=== PATIENT | female | born 1945 | race Hispanic/Latino ===

== ENCOUNTER 2025-10-02 10:39 | Emergency (ER) | payer OTHER ==
[~2025-10-02] VITALS: Ht 160 cm; Wt 72.6 kg
--- NOTE | 2025-10-02 10:59 | ERN ---
ED Note History of Present Illness Stated Complaint: CHEST PRESSURE. DIZZINESS R/T PNEUMONIA Chief Complaint: Chest Wall Pain Time Seen by MD: 10:41 Time Seen by Midlevel: 10:44 Dictation: 80-year-old female with a history of diabetes hypertension coming in for multiple complaints. Patient states she has been having intermittent chest pains for two weeks. Patient was seen on 09/29/2025 at [facility] where she was diagnosed with a atypical pneumonia and placed on azithromycin. Patient states she does not have any fever, mild cough. The patient also stating she is feeling generalized body weakness and in intermittently sees blood in her urine. Allergies: Coded Allergies: Iodinated Contrast Media (Unverified Allergy, Unknown, 10/02/25) Penicillins (Unverified Allergy, Unknown, 10/02/25) Sulfa (Sulfonamide Antibiotics) (Unverified Allergy, Unknown, 10/02/25) ciprofloxacin (Unverified Allergy, Unknown, 10/02/25) hyoscyamine (Unverified Allergy, Unknown, 10/02/25) Past Medical History Past Medical History: Angina, Diabetes-Type II, High Cholesterol, Heart Disease, Hypertension Additional Past Medical Hx: THYROID, VERTIGO Surgical History: Hysterectomy, Tonsillectomy, Cholecystectomy Surgical History Other: THYROIDECTOMY, BACK Review of System Dictation Constitutional: Negative for fever,chills, and weight loss, complaining of generalized weakness Eyes: Negative for injury, pain,redness, and discharge ENT: Negative for injury,pain or swelling Cardiovascular: Positive for chest pain, no palpitations, and no edema Respiratory: Negative for shortness of breath, positive cough, no wheezing Abdomen/GI: Negative for abdominal pain, nausea, vomiting, diarrhea, and constipation Back: Negative for injury and pain : Negative for injury, bleeding and discharge complaining of intermittent hematuria MS/Extremity: Negative for injury and deformity Skin: Negative for rash, and discoloration Neuro: Negative for headache, weakness, numbness, tingling, and seizure Psych: Negative for suicide ideation, homicidal ideation, and hallucinations Review of Systems: was completed Initial Vital Sign VS Vital Signs Date Time Temp Pulse Resp B/P (MAP) Pulse Ox O2 Delivery O2 Flow Rate FiO2 10/02/25 10:42 97.9 67 16 177/81 99 Room Air 0 10/02/25 10:51 21 Physical Exam Dictation General: awake, alert, NAD Head/Face: Normocephalic, atraumatic Eyes: PERRL, EOMI, vision at baseline ENT: oral cavity clear, TMs clear, no signs of infection Neck: Trachea midline, supple, no nuchal rigidity Cardiovascular: RRR, normal S1/S2, No MRGs, no JVD Respiratory: CTAB, no respiratory distress, No rales or wheezes Abdomen: Soft, non-tender, non-distended, normal bowel sounds, no guarding or rebound. Skin: Warm, dry, normal turgor, no rash MS/Extremity: Pulses equal, no cyanosis, neurovascular intact, FROM Neuro: COAx4, GCS 15, strength 5/5, CN 2-12 intact, normal cerebellar exam, normal gait, Psych: Normal behavior, mood, and affect normal Results (Laboratory/Radiology) Laboratory/Radiology Laboratory Tests Test 10/02/25 10:54 10/02/25 10:56 10/02/25 11:43 White Blood Count 6.0 K/uL (4.8-10.8) Red Blood Count 3.74 MIL/uL (4.00-5.50) L Hemoglobin 11.1 g/dL (12.0-16.0) L Hematocrit 34.7 % (36-48) L Mean Corpuscular Volume 92.8 fL (79-99) Mean Corpuscular Hemoglobin 29.7 pg (27.0-33.0) Mean Corpuscular Hemoglobin Concent 32.0 g/dL (32.0-36.0) Red Cell Distribution Width 13.8 % (11.0-15.5) Platelet Count 147 K/uL (130-400) Mean Platelet Volume 13.4 fL (7.5-10.5) H Immature Granulocyte % (Auto) 0.5 % (0-1) Neutrophils (%) (Auto) 61.2 % (40.0-77.0) Lymphocytes (%) (Auto) 27.1 % (21.0-51.0) Monocytes (%) (Auto) 8.0 % (3.0-13.0) Eosinophils (%) (Auto) 2.5 % (0.0-8.0) Basophils (%) (Auto) 0.7 % (0.0-5.0) Neutrophils # (Auto) 3.7 K/uL (1.8-7.7) Lymphocytes # (Auto) 1.6 K/uL (1.0-4.8) Monocytes # (Auto) 0.5 K/uL (0.1-1.0) Eosinophils # (Auto) 0.15 K/uL (0.00-0.70) Basophils # (Auto) 0.04 K/uL (0.00-0.20) Absolute Immature Granulocyte (auto 0.03 K/uL (0-1) Nucleated Red Blood Cells 0.0 % (0.0-0.19) Sodium Level 144 mmol/L (136-145) Potassium Level 4.6 mmol/L (3.5-5.1) Chloride Level 110 mmol/L (101-111) Carbon Dioxide Level 27 mmol/L (21-32) Blood Urea Nitrogen 19 mg/dL (7-18) H Creatinine 0.9 mg/dL (0.5-1.0) Glomerular Filtration Rate Calc 65 mL/min (>90) Random Glucose 142 mg/dL (70-105) H Total Calcium 8.4 mg/dL (8.5-10.1) L Troponin I High Sensitivity 5 ng/L (4-50) Influenza Type A Antigen Positive For Type A Influenza Type B Antigen Negative For Type B SARS-CoV-2, RNA, NAAT NEGATIVE SARS CoV-2 Urine Color COLORLESS (YELLOW) Urine Appearance CLEAR (CLEAR) Urine pH 6.0 (5.0-8.0) Urine Specific Simon 1.007 (1.001-1.031) Urine Protein NEGATIVE mg/dL (NEGATIVE) Urine Glucose (UA) NEGATIVE mg/dL (NEGATIVE) Urine Ketones NEGATIVE mg/dL (NEGATIVE) Urine Occult Blood SMALL (NEGATIVE) H Urine Nitrate NEGATIVE (NEGATIVE) Urine Bilirubin NEGATIVE mg/dL (NEGATIVE) Urine Urobilinogen 0.2 mg/dL (0.2-1.0) Urine Leukocyte Esterase 75 Jamison/uL (NEGATIVE) H Labs Reviewed?: Yes EKG: (-) NSR, (-) rhythm, (-) SD, (-) QRS, (-) ST depression, (-) ST elevation, (-) nonspecific ST T wave chg, (-) nonspecific ST T wave chg, (-) LBBB, (-) RBBB, (-) LVH, (-) abnormal Q waves, (-) unchanged, (-) changed from EKG Comment: EKGs done at 10:28 a.m.. Sinus rhythm rate 71. No STEMI interpreted by ER MD X-RAY Comment: [facility] [address] [place], [place] [id number] IMAGING REPORT Signed PATIENT: LISA BOSS MR#: [id number] : 1945 SEX: F AGE: 80 LOCATION: [facility] ORDER 44 STATUS: REG ER REPORT#: [id number] SERVICE 104 REASON: cough ORDERING PHYSICIAN: BETZY CARCAMO CNP PROCEDURE: CXR1VW - CHEST 1VW EXAM: CR Chest, 1 View. CLINICAL HISTORY: cough COMPARISON: None provided. FINDINGS: LUNGS: There is no mass, infiltrate, or acute pulmonary abnormality. PLEURAL SPACES: No pleural effusion or pneumothorax. MEDIASTINUM: Cardiac size and mediastinal contours within normal limits. BONES: No acute osseous abnormality. IMPRESSION: No acute cardiopulmonary pathology is evident. /[place] DICTATED BY: DESI BABB Jr., MD DATE: 10/02/251242 ELECTRONICALLY SIGNED BY: DESI BABB Jr., MD DATE: 10/02/251242 ED Course ED Course Orders Procedure Category Date Status Time Cbc With Differential LAB 10/02/25 Complete 10:41 Basic Metabolic Panel LAB 10/02/25 Complete 10:41 Troponin I High LAB 10/02/25 Complete Sensitivity 10:41 Chest 1vw RAD 10/02/25 Resulted 10:41 Urinalysis Profile LAB 10/02/25 In Process 10:41 Covid Rna Naat LAB 10/02/25 Complete 10:41 Influenza Type A & B, LAB 10/02/25 Complete Rapid 10:41 Culture Urine GILBERTO 10/02/25 Logged 12:04 Vital Signs Date Time Temp Pulse Resp B/P (MAP) Pulse Ox O2 Delivery O2 Flow Rate FiO2 10/02/25 10:51 100.4 64 18 137/65 96 Room Air* 0 21 10/02/25 10:42 97.9 67 16 177/81 99 Room Air 0 HEART Score Response (Comments) Value History: Low suspicion (0) 0 EKG: Normal 0 Age: > 65yrs (+2) 2 Risk Factors: 1-2 risk factors (+1) 1 Initial Troponin: Normal limit (0) 0 Total 3 Medical Decision Making MDM MDM: 80-year-old male with a history of hypertension and diabetes presents for evaluation of intermittent chest pain weakness ongoing for two weeks. She was evaluated at another facility on Thursday and was reportedly diagnosed with atypical pneumonia and prescribed azithromycin. Today she reports improvement in symptoms we will continue with the intermittent chest discomfort and fatigue. She denies any shortness the breath, nausea, vomiting, diaphoresis, syncope, unilateral leg weakness or new cough. She is accompanied by her son who confirms he is able to provide 24 hours if since at home. Vital signs are stable, patient is afebrile, no tachypnea, no tachycardia, SpO2 remains above 95% on room air. Nontoxic appearing, no respiratory distress, lungs clear heart regular no neurological deficits. CBC shows a leukocytosis, no anemia, no thrombocytopenia. Chemistry unremarkable. Troponin is negative. EKGs shows no ST elevations. Chest x-ray is clear of pneumonia or any acute pulmonary findings. Viral panel is positive for influenza A. Discussed findings with the patient. discussed possible hospi laura admission or outpatient care. Patient verbally expressed her go home and some confirm he can monitor and provide support. Patient is alert, oriented and has a vision making capacity. Educated patient that we will prescribe Tamiflu. Educated on red flag symptoms of when to return into the emergency room including aphasia and has been respiratory distress, confusion, syncope, worsening chest pain Differential diagnosis: ACS, COVID, flu, pneumonia, viral syndrome, dehydration Rationale: Tests considered and ordered secondary to shared decision making include: Previous outside records reviewed: Old ER visits. Risk of complication and/or morbidity or mortality of patient management: None Medications-Per medication reconciliation Need for hospitalization: Patient does not meet criteria for hospitalization. Need for emergency major/minor surgery: No There are no social concerns with this patient. Prescription drug management Prescriptions will include symptomatic care Patient's prior external medical records from other ER visits were reviewed by me as indicated. Prior testing and results from previous visits were reviewed. Prior tests were taken into account with medical decision making and resource utilization, independent historian/historians were used to obtain complete medical history. I independently interpreted the test that were performed, results were reviewed by me and considered findings on radiology if ordered. Medical management and examination interpretation discussions were had by me with other qualified healthcare professionals as indicated for the patient's care. DX & DISP Disposition: Discharge Departure Impression: Primary Impression: Influenza Condition: Stable Scripts Oseltamivir Phosphate (Tamiflu) 75 Mg Cap 75 MG PO BID for 5 Days, #14 CAP Prov: BETZY CARCAMO CNP 10/02/25 Additional Instructions: Take Tamiflu as prescribed. You can take Tylenol or Motrin for fever control body aches. Spoke follow up with your primary doctor in 2-3 days. If you develop any severe chest pain, severe shortness a breath, nausea and vomiting not tolerating any p.o. intake return to the hospital. Time of Disposition: 12:16 I have reviewed the case, and I agree with, Diagnosis and Plan BETZY CARCAMO CNP Oct 02, 2025 10:59
[2025-10-02 11:02] LABS: IMMATURE GRANULOCYTE ABSOLUTE 0.03 K/uL (0-1); NUCLEATED RED BLOOD CELLS 0.0 % (0.0-0.19); PLATELET COUNT (AUTO) 147 K/uL (130-400); RED BLOOD CELL COUNT(AUTO) 3.74 MIL/uL (4.00-5.50); RED CELL DISTRIBUTION WIDTH 13.8 % (11.0-15.5); WHITE BLOOD COUNT (AUTO) 6.0 K/uL (4.8-10.8)
[2025-10-02 11:10] LABS: CREATININE 0.9 mg/dL (0.5-1.0); GLOMERULAR FILTR. RATE CALC 65.0 mL/min (>90); GLUCOSE,RANDOM 142.0 mg/dL (70-105); SODIUM SERUM 144.0 mmol/L (136-145); UREA NITROGEN, BLOOD 19.0 mg/dL (7-18)
[2025-10-02 11:16] LABS: INFLUENZA TYPE B Negative For Type B (NEGATIVE)
[2025-10-02 11:19] LABS: SARS-CoV-2, RNA, NAAT NEGATIVE SARS CoV-2 (NEGATIVE)
[2025-10-02 11:23] LABS: INFLUENZA TYPE A Positive For Type A (NEGATIVE)
--- NOTE | 2025-10-02 11:44 | HMCIMG ---
EXAM: CR Chest, 1 View. CLINICAL HISTORY: cough COMPARISON: None provided. FINDINGS: LUNGS: There is no mass, infiltrate, or acute pulmonary abnormality. PLEURAL SPACES: No pleural effusion or pneumothorax. MEDIASTINUM: Cardiac size and mediastinal contours within normal limits. BONES: No acute osseous abnormality. IMPRESSION: No acute cardiopulmonary pathology is evident. /[place]
[2025-10-02 12:00] LABS: APPEARANCE,URINE CLEAR (CLEAR); GLUCOSE, URINE (UA) NEGATIVE (NEGATIVE); LEUKOCYTE ESTERASE ,URINE 75 Leu/uL (NEGATIVE); NITRATE,URINE NEGATIVE (NEGATIVE); OCCULT BLOOD,URINE SMALL (NEGATIVE)
[2025-10-02 12:04] LABS: ADD UA MICROSCOPIC YES
[2025-10-02 12:09] LABS: SQUAMOUS EPITHELIAL CELL,UR RARE /HPF (0-2)
[2025-10-02] MEDS ORDERED: OSEL75 PO (12:17)
[2025-10-02 12:24] VITALS: BP 141/69; PULSE 64; RESP 18; TEMP 100.3; O2SAT 97
--- NOTE | 2025-10-02 13:28 | EKG ---
[facility] Test Date: 2025-10-02 Test Time: 10:28:15 Pat Name: LISA BOSS Department: ED Room: Gender: F [place] Away: [id number] : 1945 Requested By: BETZY CARCAMO Order Number: [id number] Reading MD: Terri Cagle Measurements Intervals [place] Rate: 71 P: 28 VT: 179 QRS: -3 QRSD: 85 T: 44 QT: 390 QTc: 423 Interpretive Statements Sinus rhythm Low voltage, precordial leads No previous ECG available for comparison Electronically Signed On 10-02-2025 16:47:15 SERVICE ASSISTANT by Terri Cagle Please click the below link to view image of tracing.
[2025-10-03] MEDS ORDERED: CLON0.1T PO (17:01)
== END 2025-10-02 12:59 | disposition home or self-care (01) ==
LOC: EDH 10:39
DX: J11.00 Influenza due to unidentified influenza virus with unspecified type of pneumonia (principal); E11.9 Type 2 diabetes mellitus without complications; E78.00 Pure hypercholesterolemia, unspecified; I10 Essential (primary) hypertension; Z88.0 Allergy status to penicillin; Z88.1 Allergy status to other antibiotic agents; Z88.2 Allergy status to sulfonamides; Z90.49 Acquired absence of other specified parts of digestive tract; Z90.710 Acquired absence of both cervix and uterus; Z91.041 Radiographic dye allergy status; Z20.822 Contact with and (suspected) exposure to COVID-19
CPT/HCPCS: 36415; 71045; 80048; 81001; 84484; 85025; 87086; 87635; 87804; 93005; 99285

== ENCOUNTER 2025-10-03 14:00 | Emergency (ER) | payer OTHER ==
[~2025-10-03] VITALS: Ht 160 cm; Wt 73.9 kg
[~2025-10-03 14:00] MED LIST: OSEL75 PO
--- NOTE | 2025-10-03 14:13 | ERN ---
ED Note History of Present Illness Stated Complaint: HIGH BLOOD PRESSURE Chief Complaint: Hypertension Time Seen by MD: 14:05 Dictation: PATIENT IS A 80-YEAR-OLD MALE HERE WITH HER SON WITH COMPLAINTS OF HAVING INTERMITTENT CHEST PAIN OFF AND ON FOR TWO WEEKS. SHE ALSO IS COMING IN WITH HIGH BLOOD PRESSURE AND STATES SHE WAS JUST SEEN AT [facility] LAST NIGHT DIAGNOSED WITH INFLUENZA AND WAS PRESCRIBED OSELTAMIVIR. SHE SAID SHE SAID SHE WAS TOLD BY THE NURSE PRACTITIONER LAST NIGHT OF HER BLOOD PRESSURE DID NOT COME DOWN TO COME BACK TO THE EMERGENCY ROOM. THERE WERE NO CHANGES MADE TO HER BLOOD PRESSURE MEDICATIONS AND SHE STATES SHE TOOK THEM THIS MORNING DIRECTED FROM YOUR DOCTOR IN [facility]. Allergies: Coded Allergies: Iodinated Contrast Media (Unverified Allergy, Unknown, 10/02/25) Penicillins (Unverified Allergy, Unknown, 10/02/25) Sulfa (Sulfonamide Antibiotics) (Unverified Allergy, Unknown, 10/02/25) ciprofloxacin (Unverified Allergy, Unknown, 10/02/25) hyoscyamine (Unverified Allergy, Unknown, 10/02/25) Home Meds Active Scripts Oseltamivir Phosphate (Tamiflu) 75 Mg Cap, 75 MG PO BID for 5 Days, #14 CAP Prov:BETZY CARCAMO [place] HAND 10/02/25 Past Medical History Past Medical History: Angina, Diabetes-Type II, High Cholesterol, Heart Disease, Hypertension Additional Past Medical Hx: THYROID, VERTIGO Surgical History: Hysterectomy, Tonsillectomy, Cholecystectomy Surgical History Other: THYROIDECTOMY, BACK History: Not Applicable RN Note Reviewed/Agreed w/PFSH: Yes Review of System Dictation CONSTITUTIONAL: NEGATIVE EXCEPT FOR HPI HEAD/FACE: NEGATIVE EXCEPT FOR HPI EENT: NEGATIVE EXCEPT FOR HPI RESPIRATORY: NEGATIVE EXCEPT FOR HPI INTERMITTENT CHEST PAIN TWO WEEKS GASTROINTESTINAL/ABDOMINAL: NEGATIVE EXCEPT FOR HPI GENITOURINARY: NEGATIVE EXCEPT FOR HPI MUSCULOSKELETAL: NEGATIVE EXCEPT FOR HPI INTEGUMENTARY: NEGATIVE EXCEPT FOR HPI NEUROLOGICAL/PSYCH: NEGATIVE EXCEPT FOR HPI HEMATOLOGIC/LYMPHATIC: NEGATIVE EXCEPT FOR HPI ALL SYSTEMS NEGATIVE, EXCEPT NOTED ABOVE. 13 POINT REVIEW OF SYSTEMS ASSESSED AND ALL NEGATIVE EXCEPT FOR ABOVE. Initial Vital Sign VS Vital Signs Date Time Temp Pulse Resp B/P (MAP) Pulse Ox O2 Delivery O2 Flow Rate FiO2 10/03/25 14:02 98.2 65 20 188/86 99 Room Air 10/03/25 15:35 0 21 Physical Exam Dictation VITAL SIGNS REVIEWED GENERAL APPEARANCE: ALERT, ORIENTED X 3, NO ACUTE DISTRESS, WELL DEVELOPED, NOURISHED. HEAD AND FACE: NON-TRAUMATIC. EYES: PERRL, PINK CONJUNCTIVAS, EYELID NO TRAUMA, ANTERIOR CHAMBER WITH ARCUS SENILIS. EARS: PINNAS INTACT AND NO SIGNS OF TRAUMA OR ERYTHEMA EAR CANALS CLEAR AND NO DISCHARGE TM NO ERYTHEMA NOSE: NO DISCHARGE, NO BLEEDING. OROPHARYNX: MOUTH NORMAL, TONGUE PINK, PHARYNX CLEAR,NO ERYTHEMA, TONSILS NO EXUDATES, NO ABSCESSES NOTED, MUCOUS MEMBRANE MOIST NECK: SUPPLE, NON-TENDER, NO THYROMEGALY, NO MASSES, NO JVD, NO BRUITS BREAST:DEFERRED CHEST:NO TENDERNESS, NO CREPITUS, NO PARADOXICAL MOVEMENT, NO RETRACTIONS LUNGS:CLEAR, WELL-VENTILATED, SYMMETRIC, NO RALES, NO WHEEZING, NO RHONCHI, NO STRIDOR, GOOD BREATH SOUNDS BILATERALLY HEART: REGULAR RATE, REGULAR RHYTHM, NO MURMUR, NO GALLOPS VASCULAR: NO PERIPHERAL EDEMA, ABDOMEN: SOFT, POSITIVE BOWEL SOUNDS, NONDISTENDED, NO GUARDING, NONTENDER, NO REBOUND, NO MASSES NO HEPATOMEGALY, NO SPLENOMEGALY, NO GREENBERG'S SIGN, NO HERNIAS. RECTAL: DEFERRED GENITAL: DEFERRED NEUROLOGICAL: NORMAL SPEECH, MOTOR FUNCTION INTACT, SENSORY FUNCTION INTACT MUSCULOSKELETAL: NECK NONTENDER, FULL RANGE OF MOTION, BACK NONTENDER, FULL RANGE OF MOTION, EXTREMITIES: NONTENDER, FULL RANGE OF MOTION SKIN: COLOR PINK, DRY, NO TURGOR, NO RASH, NO LACERATIONS, NO ABRASIONS, NO CONTUSIONS. LYMPHATIC: DEFERRED Results (Laboratory/Radiology) Laboratory/Radiology Laboratory Tests Test 10/03/25 14:42 White Blood Count 7.9 K/uL (4.8-10.8) Red Blood Count 4.04 MIL/uL (4.00-5.50) Hemoglobin 11.7 g/dL (12.0-16.0) L Hematocrit 37.1 % (36-48) Mean Corpuscular Volume 91.8 fL (79-99) Mean Corpuscular Hemoglobin 29.0 pg (27.0-33.0) Mean Corpuscular Hemoglobin Concent 31.5 g/dL (32.0-36.0) L Red Cell Distribution Width 13.6 % (11.0-15.5) Platelet Count 156 K/uL (130-400) Mean Platelet Volume 12.8 fL (7.5-10.5) H Immature Granulocyte % (Auto) 0.4 % (0-1) Neutrophils (%) (Auto) 67.9 % (40.0-77.0) Lymphocytes (%) (Auto) 22.9 % (21.0-51.0) Monocytes (%) (Auto) 5.5 % (3.0-13.0) Eosinophils (%) (Auto) 2.5 % (0.0-8.0) Basophils (%) (Auto) 0.8 % (0.0-5.0) Neutrophils # (Auto) 5.3 K/uL (1.8-7.7) Lymphocytes # (Auto) 1.8 K/uL (1.0-4.8) Monocytes # (Auto) 0.4 K/uL (0.1-1.0) Eosinophils # (Auto) 0.20 K/uL (0.00-0.70) Basophils # (Auto) 0.06 K/uL (0.00-0.20) Absolute Immature Granulocyte (auto 0.03 K/uL (0-1) Nucleated Red Blood Cells 0.0 % (0.0-0.19) Sodium Level 136 mmol/L (136-145) Potassium Level 4.6 mmol/L (3.5-5.1) Chloride Level 106 mmol/L (101-111) Carbon Dioxide Level 26 mmol/L (21-32) Blood Urea Nitrogen 21 mg/dL (7-18) H Creatinine 1.0 mg/dL (0.5-1.0) Glomerular Filtration Rate Calc 58 mL/min (>90) Random Glucose 115 mg/dL (70-105) H Total Calcium 9.0 mg/dL (8.5-10.1) Troponin I High Sensitivity 6 ng/L (4-50) Labs Reviewed?: Yes EKG Comment: 1301/EKG NORMAL SINUS RHYTHM/HEART RATE 73/AXIS NORMAL/NO ECTOPY ED Course ED Course Orders Procedure Category Date Status Time Clonidine Hcl 0.1 Mg PHA 10/03/25 Complete Tablet (Catapres 0. 14:30 Cbc With Differential LAB 10/03/25 Complete 14:11 12 Lead Ekg Tracing- EKG 10/03/25 Complete Technical 14:11 Troponin I High LAB 10/03/25 Complete Sensitivity 14:11 Basic Metabolic Panel LAB 10/03/25 Complete 14:11 Current Medications Medications (Trade) Dose Ordered Sig/Keke Route PRN Reason Start Time Stop Time Status Last Admin Dose Admin Clonidine HCl (CATApres 0.1 mg TAB) 0.1 mg ONCE ONCE PO 10/03/25 14:30 10/03/25 14:31 DC 10/03/25 15:46 Vital Signs Date Time Temp Pulse Resp B/P (MAP) Pulse Ox O2 Delivery O2 Flow Rate FiO2 10/03/25 15:46 66 190/77 10/03/25 15:35 98.2 66 18 190/77 100 Room Air* 0 21 10/03/25 14:02 98.2 65 20 188/86 99 Room Air 1700/REPEAT BLOOD PRESSURE 109/96. PATIENT WILL BE DISCHARGED HOME SHE IS HAVING NO PAIN AT THIS TIME. SHE WILL BE PRESCRIBED CLONIDINE 0.1 AND GIVEN A LIST OF DOCTORS HEART Score Response (Comments) Value History: Low suspicion (0) 0 Age: > 65yrs (+2) 2 Risk Factors: 1-2 risk factors (+1) 1 Initial Troponin: Normal limit (0) 0 Total 3 Medical Decision Making MDM MDM: DIFFERENTIAL DIAGNOSIS: ACS/AMI/ELECTROLYTE IMBALANCE/DEHYDRATION/ANXIETY/UNCONTROLLED HYPERTENSION RATIONALE: TESTS CONSIDERED AND ORDERED SECONDARY TO SHARED DECISION MAKING INCLUDE: LABS/EKG PREVIOUS OUTSIDE RECORDS REVIEWED: OLD ER VISITS. RISK OF COMPLICATION AND/OR MORBIDITY OR MORTALITY OF PATIENT MANAGEMENT: NONE MEDICATIONS-PER MEDICATION RECONCILIATION NEED FOR HOSPITALIZATION: PATIENT DOES NOT MEET CRITERIA FOR HOSPITALIZATION. LAB NONE NEED FOR EMERGENCY MAJOR/MINOR SURGERY: NO THERE ARE NO SOCIAL CONCERNS WITH THIS PATIENT. PRESCRIPTION DRUG MANAGEMENT CLONIDINE 0.1 PRN BLOOD PRESSURE GREATER THAN 160 PRESCRIPTIONS WILL INCLUDE SYMPTOMATIC CARE PATIENT'S PRIOR EXTERNAL MEDICAL RECORDS FROM OTHER ER VISITS WERE REVIEWED BY ME INDICATED. PRIOR TESTING AND RESULTS FROM PREVIOUS VISITS WERE REVIEWED. PRIOR TESTS WERE TAKEN INTO ACCOUNT WITH MEDICAL DECISION MAKING AND RESOURCE UTILIZATION, INDEPENDENT HISTORIAN/HISTORIANS WERE USED TO OBTAIN COMPLETE MEDICAL HISTORY. I INDEPENDENTLY INTERPRETED THE TEST THAT WERE PERFORMED, RESULTS WERE REVIEWED BY ME AND CONSIDERED FINDINGS ON RADIOLOGY IF ORDERED. MEDICAL MANAGEMENT AND EXAMINATION INTERPRETATION DISCUSSIONS WERE HAD BY ME WITH OTHER QUALIFIED HEALTHCARE PROFESSIONALS INDICATED FOR THE PATIENT'S CARE. DX & DISP Disposition: Discharge Departure Impression: Primary Impression: Accelerated hypertension Additional Impressions: Chronic anemia, Dehydration Condition: Stable Scripts Clonidine HCl (Clonidine HCl) 0.1 Mg Tablet 0.1 MG PO AD for BLOOD PRESSURE MORE [id number], #30 TAB Prov: RITA HOFFMAN 10/03/25 Additional Instructions: FOLLOW-UP WITH PRIMARY CARE PROVIDER IN 1 TO 2 DAYS. TAKE MEDICATIONS DIRECTED HERE IN THE EMERGENCY ROOM. OKAY TO CONTINUE HOME MEDICATIONS UNLESS OTHERWISE DISCUSSED DURING YOUR VISIT IN THE EMERGENCY ROOM TODAY. RETURN TO YOUR NEAREST EMERGENCY ROOM IF SYMPTOMS WORSEN OR IF THERE IS NO IMPROVEMENT. CALL 911 IF YOU NEED IMMEDIATE ASSISTANCE. TAKE TYLENOL OR MOTRIN [id number] NEEDED AND IF NO CONTRAINDICATIONS ARE PRESENT. INCREASE ORAL HYDRATION. A WOUND CULTURE OR URINE CULTURE WAS ORDERED HERE IN THE EMERGENCY ROOM DEPARTMENT PLEASE FOLLOW-UP WITH PRIMARY CARE PROVIDER AND ADVISE THEM TO GET REPEAT PORTS FROM OUR FACILITY. IF YOU HAD ANY JENNA WRAP/SPLINTS THAT WERE APPLIED HERE, PLEASE DO NOT REMOVE THEM UNTIL YOU SEE YOUR PRIMARY CARE OR SPECIALTY. CONTINUE ALL YOUR MEDICATIONS AT HOME. TAKE CLONIDINE 0.1 MG DAILY NEEDED FOR BLOOD PRESSURE MORE THAN 160 FOLLOW UP WITH ONE OF THE DOCTORS ON THE LIST PROVIDED YOU IN THE NEXT ONE TWO DAYS FOR MANAGEMENT Referrals: SELF,REFERRAL (PCP) Time of Disposition: 17:00 I have reviewed the case, and I agree with, Diagnosis and Plan RITA HOFFMAN Oct 03, 2025 14:13
[2025-10-03 14:46] LABS: IMMATURE GRANULOCYTE ABSOLUTE 0.03 K/uL (0-1); NUCLEATED RED BLOOD CELLS 0.0 % (0.0-0.19); PLATELET COUNT (AUTO) 156 K/uL (130-400); RED BLOOD CELL COUNT(AUTO) 4.04 MIL/uL (4.00-5.50); RED CELL DISTRIBUTION WIDTH 13.6 % (11.0-15.5); WHITE BLOOD COUNT (AUTO) 7.9 K/uL (4.8-10.8)
[2025-10-03 14:54] LABS: CREATININE 1.0 mg/dL (0.5-1.0); GLOMERULAR FILTR. RATE CALC 58.0 mL/min (>90); GLUCOSE,RANDOM 115.0 mg/dL (70-105); SODIUM SERUM 136.0 mmol/L (136-145); UREA NITROGEN, BLOOD 21.0 mg/dL (7-18)
--- NOTE | 2025-10-03 14:57 | EKG ---
[facility] Test Date: 2025-10-03 Test Time: 13:01:06 Pat Name: LISA BOSS Department: ED Room: Gender: F [facility]: [id number] : 1945 Requested By: RITA HOFFMAN Order Number: [id number] Reading MD: Ramana Pate Measurements Intervals [place] Rate: 73 P: 40 CA: 175 QRS: -5 QRSD: 89 T: 35 QT: 385 QTc: 426 Interpretive Statements Sinus rhythm Low voltage, precordial leads Compared to ECG 10/02/2025 10:28:15 No significant changes Electronically Signed On 10-03-2025 21:14:12 DREDGE PUMPER by Ramana Pate Please click the below link to view image of tracing.
--- NOTE | 2025-10-03 15:35 | NUR ---
ASSUMED CARE OF THIS PATIENT AT THIS TIME.
[2025-10-03 16:45] VITALS: BP 104/59; PULSE 67; RESP 18; TEMP 98.1; O2SAT 99
[2025-10-03] MEDS ORDERED: CLON0.1T PO (17:01)
== END 2025-10-03 17:27 | disposition home or self-care (01) ==
LOC: EDH 14:00
DX: I11.9 Hypertensive heart disease without heart failure (principal); D64.9 Anemia, unspecified; E86.0 Dehydration; E78.00 Pure hypercholesterolemia, unspecified; E11.9 Type 2 diabetes mellitus without complications; Z88.0 Allergy status to penicillin; Z88.1 Allergy status to other antibiotic agents; Z88.2 Allergy status to sulfonamides; Z91.041 Radiographic dye allergy status; Z90.49 Acquired absence of other specified parts of digestive tract; Z90.710 Acquired absence of both cervix and uterus; Z90.89 Acquired absence of other organs
CPT/HCPCS: 36415; 80048; 84484; 85025; 93005; 99284